=== PATIENT | male | born 1995 ===

== ENCOUNTER 2016-08-31 06:26 | Emergency (ER) | payer SELFPAY | END 2016-08-31 09:11 | disposition home or self-care (01) | LOC: D.ER 06:26 | DX: S00.93XA Contusion of unspecified part of head, initial encounter (principal); X58.XXXA Exposure to other specified factors, initial encounter; Y93.89 Activity, other specified; Y92.89 Other specified places as the place of occurrence of the external cause; T14.8 Other injury of unspecified body region; F10.129 Alcohol abuse with intoxication, unspecified; S09.90XA Unspecified injury of head, initial encounter ==